=== PATIENT | male | born 1990 | race Caucasian/White ===

== ENCOUNTER 2020-04-05 14:18 | Emergency (ER) | payer SELFPAY ==
[~2020-04-05] VITALS: Ht 177.8 cm; Wt 75.0 kg
[2020-04-05] MEDS ORDERED: AMOX/K CLAV875 M1 PO (15:42)
[2020-04-05] MEDS ORDERED: PROBIOTIC1 TAB PO (15:42)
[2020-04-05 15:55] VITALS: BP 144/91
== END 2020-04-05 15:56 | disposition home or self-care (01) | DRG 153 ==
LOC: ED 14:18
DX: J32.9 Chronic sinusitis, unspecified (principal); F17.290 Nicotine dependence, other tobacco product, uncomplicated; Z20.828 Contact with and (suspected) exposure to other viral communicable diseases

== ENCOUNTER 2020-05-05 16:03 | Emergency (ER) | payer SELFPAY ==
[~2020-05-05] VITALS: Ht 177.8 cm; Wt 70.5 kg
[~2020-05-05 16:03] MED LIST: AMOX/K CLAV875 M1 PO; PROBIOTIC1 TAB PO
[2020-05-05] MEDS ORDERED: KEFLEX500 M1 PO (16:59)
[2020-05-05] MEDS ORDERED: ALLEGRA180 MG PO (16:59)
[2020-05-05 17:14] VITALS: BP 138/89
== END 2020-05-05 17:14 | disposition home or self-care (01) | DRG 156 ==
LOC: ED 16:03
DX: H91.92 Unspecified hearing loss, left ear (principal); J34.0 Abscess, furuncle and carbuncle of nose; I10 Essential (primary) hypertension; F17.290 Nicotine dependence, other tobacco product, uncomplicated

== ENCOUNTER 2020-05-25 15:13 | Emergency (ER) | payer SELFPAY ==
[~2020-05-25] VITALS: Ht 177.8 cm; Wt 68.2 kg
[~2020-05-25 15:13] MED LIST changes: +ALLEGRA180 MG PO; +KEFLEX500 M1 PO
[2020-05-25] MEDS ORDERED: KEFLEX500 M1 PO (15:53)
[2020-05-25] MEDS ORDERED: BACTROBAN TOP (15:53)
[2020-05-25 16:00] VITALS: BP 137/95
== END 2020-05-25 16:00 | disposition home or self-care (01) | DRG 603 ==
LOC: ED 15:13
DX: L02.213 Cutaneous abscess of chest wall (principal); I10 Essential (primary) hypertension; F17.200 Nicotine dependence, unspecified, uncomplicated; B95.62 Methicillin resistant Staphylococcus aureus infection as the cause of diseases classified elsewhere

== ENCOUNTER 2020-06-05 18:50 | Emergency (ER) | payer SELFPAY ==
[~2020-06-05] VITALS: Ht 177.8 cm; Wt 74.0 kg
[~2020-06-05 18:50] MED LIST changes: +BACTROBAN TOP
[2020-06-05 19:53] LABS: HEMATOCRIT 45.4 % (39.0-50.0); HEMOGLOBIN 15.6 g/dl (14.0-18.0); IMMATURE GRANULOCYTES 0.3 % (0.0-5.0); MEAN CELL VOLUME 90.4 fL CALC (80.0-100.0); MEAN CORPUSCULAR HGB 31.1 pG CALC (26.0-32.0); MEAN CORPUSCULAR HGB CONC 34.4 g/dL CAL (32.0-36.0); NEUT# 3.15 thou/uL (1.82-7.42); RED BLOOD COUNT 5.02 mill/uL (4.70-6.10); RED CELL DISTRI WIDTH 12.2 % (11.5-15.5)
[2020-06-05 21:38] VITALS: BP 152/94
== END 2020-06-05 21:56 | disposition home or self-care (01) | DRG 179 ==
LOC: ED 18:50
PROVIDERS: Family Medicine
DX: U07.1 COVID-19 (principal); M79.10 Myalgia, unspecified site; I10 Essential (primary) hypertension; F17.290 Nicotine dependence, other tobacco product, uncomplicated

== ENCOUNTER 2020-06-25 10:50 | Emergency (ER) | payer SELFPAY ==
[~2020-06-25] VITALS: Ht 177.8 cm; Wt 75.0 kg
[2020-06-25 14:28] VITALS: BP 124/80
== END 2020-06-25 14:29 | disposition home or self-care (01) | DRG 179 ==
LOC: ED 10:50
DX: U07.1 COVID-19 (principal); J06.9 Acute upper respiratory infection, unspecified; F17.290 Nicotine dependence, other tobacco product, uncomplicated; I10 Essential (primary) hypertension